=== PATIENT | male | born 1970 | race Caucasian/White ===

== ENCOUNTER 2021-12-13 08:47 | Outpatient (CLI) | payer OTHER, SELFPAY | END 2021-12-13 08:48 | disposition home or self-care (01) | LOC: CHSLAB 08:57 | PROVIDERS: PCP Specialist; Visit Provider Specialist | DX: C43.59 Malignant melanoma of other part of trunk (principal) | CPT/HCPCS: 88305; 88342 ==

== ENCOUNTER 2022-04-04 14:47 | Outpatient (CLI) | payer OTHER, SELFPAY | END 2022-04-04 14:48 | disposition home or self-care (01) | LOC: CHSLAB 14:53 | PROVIDERS: PCP Specialist; Visit Provider Specialist | DX: D22.5 Melanocytic nevi of trunk (principal) | CPT/HCPCS: 88305 ==

== ENCOUNTER 2023-11-27 10:13 | Outpatient (CLI) | payer OTHER, SELFPAY | END 2023-11-27 10:14 | disposition home or self-care (01) | PROVIDERS: PCP Family Medicine; Visit Provider Specialist | DX: D22.5 Melanocytic nevi of trunk (principal) | CPT/HCPCS: 88305 ==